=== PATIENT | female | born 1945 | race Caucasian/White ===

== ENCOUNTER 2018-04-19 00:37 | Observation (INO) | payer MEDICARE, OTHER ==
[2018-04-18 13:40] LABS: INR 0.99
--- NOTE | 2018-04-18 20:57 | HISTORY AND PHYSICAL ---
DATE OF ADMISSION: April 19, 2018 IDENTIFICATION/CHIEF COMPLAINT Angie is a 72-year-old woman with the chief complaint of left knee pain. 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 It has been debilitating and refractory to conservative care. Surgery is indicated to relieve symptoms after failure of nonoperative measures. PAST MEDICAL HISTORY 1. Hypothyroidism. 2. Acid reflux. 3. Arrhythmia. ALLERGIES She has no known drug allergies. CURRENT MEDICATIONS 1. Trazodone 50 mg p.o. at bedtime. 2. Baby aspirin one p.o. q. day. 3. Nadolol 20 mg half tablet p.o. q. day. 4. Levothyroxine 0.125 mg half tablet p.o. q. day. 5. Omeprazole 20 mg p.o. q. day. 6. Vitamins. PAST SURGICAL HISTORY Notable for contralateral knee replacement. FAMILY HISTORY Notable for father with cancer and a daughter with cancer. SOCIAL HISTORY Negative for tobacco use. She did previously smoke, but quit in 1997. Drinks alcohol, about two glasses of wine a day. Denies abuse. REVIEW OF SYSTEMS Otherwise negative. PHYSICAL EXAMINATION GENERAL: This is a well-developed, well-nourished female, appears stated age. HEENT: Normocephalic, atraumatic. NECK: Supple. LUNGS: Clear. HEART: Regular. ABDOMEN: Soft. ORTHOPEDIC: Left knee has an effusion. She is tender at the medial joint line. She has slight valgus, a little laxity, but is otherwise stable. Extensor function intact. Motion is relatively supple. IMAGING Radiographs demonstrate end-stage anteromedial osteoarthritis. With this correction, opens nicely in the medial compartment with a stressed unilateral compartment. It does not collapse. ASSESSMENT Left knee anteromedial osteoarthritis. PLAN I discussed the options with Angie including the option of undergoing conservative care, which is safe and reasonable, but with a high likelihood of persistent or worsening symptoms, or the option of proceeding with knee arthroplasty. We had an extensive discussion about the relative risks and benefits of unicompartmental versus total knee arthroplasty, and if operative findings permit, she would prefer to proceed with a unicompartmental knee arthroplasty to mitigate chance of morbidity and to speed recovery and increase her chance of a more normal-feeling knee. If this is not indicated based on the operative finding, we will proceed with total knee arthroplasty at the same setting. The nature of the procedure, risks, benefits, and the anticipated rehabilitative course reviewed. Risks include, but are not limited to , major medical or anesthetic complication, infection, neurovascular injury, blood transfusion, stiffness, scarring, fracture, tendon rupture, instability, implant loosening, migration, or failure, persistent or recurrent pain, need for additional surgery, and other unforeseen. She understands and wishes to proceed. Signed permit is placed in the chart. No guarantees are given or implied. ANN
[~2018-04-19] VITALS: Ht 165.1 cm; Wt 87.5 kg
[2018-04-19] VITALS (14 sets, daily range): BP systolic 137–168; BP diastolic 67–130
[~2018-04-19 00:37] MED LIST: ACE325 PO; ASPI-715 PO; ASPI81TA94 PO; CALC-1033 PO; CELE-1 PO; CHOL200021 PO; ESOM40CA42 PO; FERR-63 PO; FISH OIL1 CAP PO; IBUP-136 PO; LEVO150T72 PO; LOR7.5/325 PO; MULT1CAP59 PO; NADO20TA12 PO; OMEP-125 PO; OXY10 PO; TRAZ50TA34 PO
[2018-04-19] MEDS ORDERED: fentaNYL CITR 100 MCG/2 ML AMP ONE ×2 (09:18→10:00)
[2018-04-19] MEDS ORDERED: ONDANSETRON 4 MG/2 ML VIAL ONE ×2 (09:18→10:39)
[2018-04-19] MEDS ORDERED: PROPOFOL EMUL 10MG/ML 20 ML VL ONE (09:18)
[2018-04-19] MEDS ORDERED: LACTATED RINGER 3000 ML BAG IR ONE (10:35)
[2018-04-19] MEDS ORDERED: ROPIVACAINE 0.5% 20 ML VIAL ONE (10:39)
[2018-04-19] MEDS ORDERED: ROPIVACAINE 0.2% 20 ML VIAL ONE (10:39)
[2018-04-19] MEDS ORDERED: PROPOFOL EMUL(*) 10MG/ML 20 ML 20 ML ONE (10:39)
[2018-04-19] MEDS ORDERED: BISACODYL 10 MG SUPP PR PRN (12:20)
[2018-04-19] MEDS ORDERED: MAGNESIUM HYDROXIDE* 30ML UDCP PO PRN (12:20)
[2018-04-19] MEDS ORDERED: NORMOSOL R SOLN(*) 1000 ML BAG 1,000 ML IV PRN ×2 (12:20→13:00)
[2018-04-19] MEDS ORDERED: BENZOCAINE/MENTHOL 1 EACH LOZG PO PRN (12:20)
[2018-04-19] MEDS ORDERED: FLUSH 10 ML SYR IVP PRN (12:20)
[2018-04-19] MEDS ORDERED: diphenhydrAMINE 50 MG/ML VIAL IVP PRN (12:20)
[2018-04-19] MEDS ORDERED: ACETAMINOPHEN 325 MG TAB PO PRN (12:20)
[2018-04-19] MEDS ORDERED: diphenhydrAMINE 25 MG CAP PO PRN (12:20)
[2018-04-19] MEDS ORDERED: DIAZEPAM 5 MG TAB PO PRN (12:20)
[2018-04-19] MEDS ORDERED: ZOLPIDEM TARTRATE 5 MG TAB PO PRN (12:20)
[2018-04-19] MEDS ORDERED: PROMETHAZINE 25 MG/ML 1 ML AMP IVP PRN (12:20)
[2018-04-19] MEDS ORDERED: ACETAMINOPHEN 500 MG TAB PO ONE (13:00)
[2018-04-19] MEDS ORDERED: PREGABALIN 75 MG CAPSULE PO ONE (13:00)
[2018-04-19] MEDS ORDERED: MIDAZOLAM 2 MG/2 ML VIAL IVP PRN (13:00)
[2018-04-19] MEDS ORDERED: CELECOXIB 200 MG CAP PO ONE (13:00)
[2018-04-19] MEDS ORDERED: cloNIDine EPIDUR INJ 100MCG/ML 40 MCG, ROPIVACAINE 0.5% 20 ML VIAL 25 ML, EPINEPHrine H... INJ ONE (13:00)
[2018-04-19] MEDS ORDERED: TRANEXAMIC AC 1000 MG/10ML SDV 1,000 MG in DEXTROSE 5% 50 ML BAG 50 ML IV ONE (13:00)
[2018-04-19] MEDS ORDERED: ceFAZolin(*) 2GM/D5W 50ML 50 ML IVPB ONE (13:00)
[2018-04-19] MEDS ORDERED: LIDOCAINE/SOD BICARB 8.4% SYR ID ONE (13:00)
--- NOTE | 2018-04-19 13:08 | RADIOLOGY IMAGING REPORT ---
FACILITY: [facility] PATIENT NAME: Alana Caraballo : 1945 MR: [id number] V: [id number] EXAM DATE: ORDERING PHYSICIAN: MYRA KOWALSKI TECHNOLOGIST: Location: [facility] Patient: Alana Caraballo : 1945 Visit/Account:[id number] Date of Sevice: 04/19/2018 KNEE LIMITED LEFT Indication: Postop Comparison: None available Findings: There are postsurgical changes from medial two-part hemiarthroplasty. On lateral view, small gap is noted along the condylar component.. IMPRESSION: 1. Postsurgical changes from two-part hemiarthroplasty as described Report Dictated By: Meng Coffey at 04/19/2018 1:03 PM Report E-Signed By: Mneg Coffey at 04/19/2018 1:05 PM WSN:[id number]
[2018-04-19] MEDS: APAP/HYDROCODONE 325/7.5 TAB PO PRN ×2 (15:06→21:10)
--- NOTE | 2018-04-19 15:50 | Hospitalist Consultation ---
History of Present Illness Requesting Physician Dr. Colby Reason for Consult Medical Management Chief Complaint s/p left unicompartmental knee replacement History of Present Illness She was admitted s/p left unicompartmental knee replacement. It is reported the surgery went well and without complication. History Problems: (1) Hypothyroidism Status: Chronic (2) GERD (gastroesophageal reflux disease) Status: Chronic (3) PVCs (premature ventricular contractions) Status: Chronic Home Meds Reported Medications Aspirin (ASPIRIN) 81 Mg Tab.chew, 81 MG PO QDAY, TAB.CHEW 04/14/18 Trazodone Hcl (TRAZODONE HCL) 50 Mg Tablet, 50 MG PO QHS 04/14/18 Omeprazole (OMEPRAZOLE) 20 Mg Capsule.dr, 1 CAP PO QODAY, CAP 04/14/18 Ibuprofen (IBUPROFEN) 200 Mg Capsule, 1-5 CAP PO DAILY PRN for PAIN, CAPSULE 04/14/18 Calc/D3/Mag/Zn/Artist'S Manager/Carlitos/[place] (CALCIUM 600 MG PLUS VIT D TAB) 1 Each Tablet, 1 EACH PO 04/06/12 Cholecalciferol (Vitamin D) 2,000 Unit Capsule, 2000 UNIT PO QDAY 04/06/12 [place]-3 Fatty Acids (Fish Oil) 1 Cap Capsule, 1 CAP PO QDAY 04/06/12 Multivitamins (Multivitamin) 1 Each Capsule, 1 EACH PO DAILY THERA-M ENHANCED TAB 04/06/12 Nadolol (Nadolol) 20 Mg Tablet, 10 MG PO QDAY 04/06/12 Levothyroxine Sodium (Levothryoxine Sodium) 150 Mcg Tablet, 75 PO DAILY 04/06/12 Discontinued Reported Medications Acetaminophen (Tylenol) 325 Mg Tab, 650 MG PO Q4H PRN 04/15/12 Celecoxib (Celebrex) 200 Mg Capsule, 200 MG PO BID, #60 0 Refills 04/15/12 Ferrous Gluconate (Ferrous Gluconate) 325 Mg Tablet, 325 MG PO BID, #60 0 Refills 04/15/12 Acetaminophen/Hydrocodone (Lortab 7.5/325 Mg) 7.5 Mg/325 Mg Tab, 1 - 2 TAB PO Q4-6H PRN, #60 1 Refill 04/15/12 Oxycodone Hcl (Oxycontin) 10 Mg Tabcr, 10 MG PO Q12H PRN, #20 0 Refills 04/15/12 Aspirin (Aspirin) 81 Mg Tablet.dr, 81 MG PO DAILY quit taking on 04/02/12 RESTART AFTER FINISHING XARELTO 04/06/12 Esomeprazole Mag Trihydrate (Nexium) 40 Mg Capsule.dr, 40 MG PO QODAY 04/06/12 Allergies: Coded Allergies: No Known Drug Allergies (Unverified , 04/06/12) Hx Smoking: Yes (1PPD X 20-25 YRS QUIT 30 YRS AGO) Smoking Status: Former Smoker Exposure to Second Hand Smoke?: Yes Caffeine Intake: Coffee, Tea Caffeine/Cups Per Day: 1-2 cups COFFEE daily Hx Alcohol Use: Yes Alcohol Used: Wine Hx Substance Use Disorder: No Social Drugs: Marijuana History of IV Drug Use: No Review of Systems All Systems Reviewed/Normal: Yes, Except as Noted Exam Vital Signs Vital Signs Date Time Temp Pulse Resp B/P (MAP) Pulse Ox O2 Delivery O2 Flow Rate FiO2 04/19/18 14:04 154/99 (117) 04/19/18 14:00 48 93 Room Air 04/19/18 13:30 2.0 04/19/18 13:15 16 04/19/18 13:10 97.5 General Appearance: Alert, Awake, No Acute Distress, Afebrile Neuro: No Gross deficits Cardiovascular: Regular Rate and Rhythm Respiratory: No Respiratory Distress, Clear to Auscultation GI: Abd Soft and Non-Tender Psych: Alert & Oriented X3, Appropriate Mood & Affect Assessment and Plan Problems: (1) S/P left unicompartmental knee replacement Status: Acute Assessment & Plan: Followed by Dr. Colby. She will be placed on Aspirin for DVT prophylaxis. She has no history of DVT or PE. (2) PVCs (premature ventricular contractions) Status: Chronic Assessment & Plan: She is on chronic treatment with Nadolol. This has been restarted with hold parameters. (3) Hypothyroidism Status: Chronic Assessment & Plan: She is on chronic treatment with Levothyroxine. (4) GERD (gastroesophageal reflux disease) Status: Chronic Assessment & Plan: She is on chronic treatment with Omeprazole every other day. She took her dose 04/19. Venous Thromboembolism Antithrombotics Is Pt On Any Antithrombotics?: No Exam Sepsis Risk: No Definite Risk KATTY KAUR MECHANICAL OXIDIZER Apr 19, 2018 15:50
--- NOTE | 2018-04-19 17:20 | OPERATIVE REPORT 1 ---
EVENT DATE: April 19, 2018 SURGEON: Mo Colby MD ANESTHESIOLOGIST: Toribio Soto MD ANESTHESIA: General plus IPACK block and adductor canal block. INTERIOR SURFACE INSULATION WORKER: OLAYINKA Magdaleno PREOPERATIVE DIAGNOSIS Left knee anteromedial osteoarthritis. POSTOPERATIVE DIAGNOSIS Left knee anteromedial osteoarthritis. PROCEDURE PERFORMED Left knee medial compartment unicompartmental replacement with [place] Knee. ESTIMATED BLOOD LOSS Minimal. DRAINS None. SPECIMENS None. COMPLICATIONS None apparent. TOURNIQUET TIME Approximately 75 minutes. IMPLANTS USED Biomet [place] Knee with a B left medium tibial component, a medium femoral component, and a 3 mm mobile bearing polyethylene meniscal bearing. INDICATIONS Patient has intractable pain and disability related to end-stage anteromedial osteoarthritis. Surgery is indicated to relieve pain and improve function after failure of nonoperative measures. DESCRIPTION OF PROCEDURE Patient was taken to the operating room and placed supine on the operating room table. Approximately blocks were placed by anesthesiologist. General anesthesia was induced, and antibiotics and TXA are administered IV. Left lower extremity is prepped and draped in the usual sterile fashion for knee arthroplasty. An incision is made from the superior medial border of the patella to an area 3 cm below the joint line just medial to the tibial tubercle. It is carried down through the skin and subcutaneous tissue to the retinaculum. Arthrotomy is performed, leaving a cuff of tissue just along the medial border of the patella. This maybe extends a centimeter or so up into the vastus medialis and capsule. It is carried distally down to the bone on the proximal tibia. A bit of the fat pad is excised, and the joint is inspected. The ACL is normal. There is no ulceration on the lateral condyle. There is end-stage anteromedial osteoarthritis. The anterior horn of the meniscus is removed, leaving a small rim of meniscal tissue to protect the MCL. The MCL is not released. Subperiosteal release is performed on the front of the tibia just enough to allow the cutting block to be seated. The medium 1 mm spoon is introduced, and this is appropriately sized. The 4 mm G clamp is applied along with the tibial guide, which is set for neutral alignment and orientation towards the ASIS and over the flexion point of the knee. The block is brought down on the bone and pinned in position after confirming ideal placement. The horizontal cut is made with a Huerta blade first using the Z retractor to protect the deep fibers of the MCL. The blade is left in place. A nori is made along the medial tibial spine just medial to the apex just off the ACL insertion. All osteophytes are removed from the notch in the periphery, and then the specialized vertical cut saw blade is introduced and used to cut down to complete the tibial resection onto the Huerta blade. The biscuit or tibial plateau fragment is removed and demonstrates classic findings of anteromedial osteoarthritis with good preservation posteriorly. This was sized to select appropriate trials for the tibial implant. The femoral aiming tunnel is created next. The 4 mm bit a centimeter anterior to the PCL insertion 2-3 mm lateral to the lateral wall of the medial femoral condyle directed along the canal is opened with a 5 mm radiologic tech, and then the sima is placed easily by hand and fits nicely. The 4 mm femoral cutting guide is then introduced after marking the center point from anterior to posterior of the medial to lateral dimension of the medial femoral condyle, and the appropriate jig is attached between the guide sima and the femoral cutting guide. This is advanced down to bone, and care is taken to center the center nori in the center of the holes. The upper 4 mm hole is created first with a 4 mm bit. It is left in place, and then the second hole is created with a 6 mm bit. These are both removed, and the posterior cutting block is applied. Posterior cut is made with an oscillating saw. Posterior fragment is removed. The remainder of the meniscus is grasped and removed in its entirety, taking care to leave a small cuff to protect the MCL. Next, the 0 spigot is introduced, and the first milling is performed. The ligament balance is assessed at 110 and 20, and there is 4 mm paddle introduced at 110 and only the 2 at 20; therefore, the 2 mm spigot is introduced, and the second reaming is performed. The gaps are balanced with 4 mm paddle easily introduced at 20 at 110 after the second milling. The nipple was removed with the appropriate device, and a trial femur and trial tibial baseplate are introduced, and provisional assessment is made. There is plenty of space for the 3-4 mm paddle. The anti-impingement device is introduced next on the femur and milled anteriorly and the osteotome used posteriorly to remove any potentially impinging bone. Then the tibial trial is introduced, held in the right position just against the posterior cortex with a hooking tool. The guide plate is pinned up against the vertical cut, and the saw is used to create the channel for the keel on the tibial baseplate. This is then removed, and the pick is used to excavate any bone that might block implantation. Trial tibia has good fit. It is introduced along with the trial femur and a trial bearing, and there is no impingement with a nice, smooth range of motion. Bone is then perforated with a small bit to facilitate cement interdigitation. A mix of methacrylate is made, and the components are cemented in a single stage. The knee is solid at 45 degrees of flexion with a 4 mm paddle introduced and light pressure during the polymerization. Care is taken to make sure no cement extrudes. The trial is then performed with the trial bearings, and the 4 can snap in, but it is a bit tight. The 3 feels better, so the actual 3 mm bearing is snapped into place. The wound is copiously lavaged. Meticulous hemostasis is assured. The bone canal in the femur is plugged with a small fragment of bone, and meticulous hemostasis is assured. The layered closure is performed next with #1 Vicryl for the arthrotomy, followed by 3-0 Vicryl for the dermis and 4-0 Monocryl running subcuticular suture. A cosmetic adhesive Adaptic dressing was applied with Dermabond. A dry, sterile dressing was applied, followed by a compression wrap. Patient is awakened from anesthesia and taken to the recovery room in stable condition having tolerated the procedure well. Plan is for rehab protocol without modification. ANN
[2018-04-19] MEDS: CELECOXIB 200 MG CAP PO SCH (17:25)
[2018-04-19] MEDS: ceFAZolin(*) 1 GM VIAL 1 GM in NS(*) 0.9% 100 ML ADDVANT BAG 100 ML IVPB SCH (17:25)
[2018-04-19] MEDS ORDERED: traZODone HCL 50 MG TAB PO SCH (21:00)
[2018-04-20] MEDS: ceFAZolin(*) 1 GM VIAL 1 GM in NS(*) 0.9% 100 ML ADDVANT BAG 100 ML IVPB SCH ×2 (00:33→08:47)
[2018-04-20 03:27] VITALS: BP 132/68
[2018-04-20] MEDS: APAP/HYDROCODONE 325/7.5 TAB PO PRN ×2 (05:39→11:44)
[2018-04-20] MEDS ORDERED: LEVOTHYROXINE SOD 0.075 MG TAB PO SCH (06:00)
[2018-04-20 06:08] LABS: PLATELET COUNT, AUTOMATED 160 K/uL (150-450)
[2018-04-20] MEDS ORDERED: HYDR-654 PO (07:55)
[2018-04-20] MEDS ORDERED: ASPI-757 PO (08:05)
[2018-04-20] MEDS: CELECOXIB 200 MG CAP PO SCH (08:47)
[2018-04-20 08:51] VITALS: BP 132/68
[2018-04-20] MEDS ORDERED: ASPIRIN 325 MG TAB PO SCH (09:00)
[2018-04-20] MEDS ORDERED: NADOLOL 40 MG TAB PO SCH (09:00)
--- NOTE | 2018-04-20 11:35 | Hospitalist Progress Note ---
Subjective Progress Notes Subjective She has no complaints this morning. She had no acute events overnight. Patient Complains of: Cardiovascular: No: Chest Pain Respiratory: No: Shortness of Breath Physical Exam Vital Signs Date Time Temp Pulse Resp B/P (MAP) Pulse Ox O2 Delivery O2 Flow Rate FiO2 04/20/18 10:07 92 04/20/18 08:54 Room Air 04/20/18 08:51 98.2 52 16 132/68 (89) 04/20/18 03:27 1.0 Intake and Output 04/20/18 00:00 Intake Total 1895 ml Balance 1895 ml Intake Oral 240 ml IV Total 1655 ml # Voids 1 General Appearance: Alert, Awake, No Acute Distress, Afebrile Neuro: No Gross deficits Cardiovascular: Regular Rate and Rhythm Respiratory: No Respiratory Distress, Clear to Auscultation Psych: Alert & Oriented X3, Appropriate Mood & Affect Result Diagram: 04/20/18 0523 Assessment and Plan Problems: (1) S/P left unicompartmental knee replacement Status: Acute Assessment & Plan: Followed by Dr. Colby. She will be placed on Aspirin for DVT prophylaxis. She has no history of DVT or PE. (2) PVCs (premature ventricular contractions) Status: Chronic Assessment & Plan: She is on chronic treatment with Nadolol. This has been restarted with hold parameters. (3) Hypothyroidism Status: Chronic Assessment & Plan: She is on chronic treatment with Levothyroxine. (4) GERD (gastroesophageal reflux disease) Status: Chronic Assessment & Plan: She is on chronic treatment with Omeprazole every other day. She took her dose 04/19. Exam Sepsis Risk: No Definite Risk KATTY KAUR CONSTRUCTION TECH Apr 20, 2018 11:35
== END 2018-04-20 10:55 | disposition home or self-care (01) ==
LOC: OR 00:37 → OBSVTOIN 13:15 → INTOOBSV 13:15 → MED 13:15
PROVIDERS: ADMIT Orthopaedic Surgery; ATTEND Orthopaedic Surgery
DX: M17.12 Unilateral primary osteoarthritis, left knee (principal); E03.9 Hypothyroidism, unspecified; K21.9 Gastro-esophageal reflux disease without esophagitis; E78.00 Pure hypercholesterolemia, unspecified; I10 Essential (primary) hypertension; I49.3 Ventricular premature depolarization; Z87.891 Personal history of nicotine dependence
CPT/HCPCS: 27446; 36415; 73560; 85025; 85610; 86850; 86900; 86901; 97110; 97116; 97161; 97530; A9270; G0378; J0171; J0690; J0735; J1885; J2250; J2405; J2704; J2795; J3010; J7050; J7060; C1713; C1776